=== PATIENT | male | born 1990 | race Hispanic/Latino ===

== ENCOUNTER → 2020-02-24 | Outpatient (CLI) | payer OTHER ==
[2020-02-24 16:46] LABS: APPEARANCE,URINE HAZY (CLEAR); BILIRUBIN,URINE NEGATIVE (NEGATIVE); UA COLOR YELLOW (YELLOW)
[2020-02-24 16:47] LABS: UROBILINOGEN,URINE NEGATIVE (NEGATIVE)
[2020-02-26 07:16] LABS: HEP A AB, IgM Negative (Negative)
== END | disposition home or self-care (01) ==
LOC: LAB 16:18
PROVIDERS: ATTEND Nurse Practitioner Adult Health
DX: R53.83 Other fatigue (principal); R10.9 Unspecified abdominal pain; R19.7 Diarrhea, unspecified; Z20.2 Contact with and (suspected) exposure to infections with a predominantly sexual mode of transmission
CPT/HCPCS: 36415; 80074; 81000; 82272; 84436; 84439; 84443; 86318; 86592; 86695; 86696; 87045; 87086; 87177; 87338

== ENCOUNTER → 2020-03-02 | Outpatient (CLI) | payer OTHER ==
[2020-03-02 10:07] LABS: BASOPHIL # 0.1 10^3/uL (0.0-0.1); EOSINOPHIL # 0.2 10^3/uL (0.0-0.2); EOSINOPHIL % 2.7 % (0.0-5.0); LYMPHOCYTES # 2.09 10^3/uL1 (1.0-4.8); LYMPHOCYTES % 33.6 % (24.0-44.0); MEAN CORP HGB 32.5 pg (26-34); MONOCYTES # 0.6 10^3/uL (0.3-0.8); NEUTROPHIL # 3.3 10^3/uL (1.8-7.7); NEUTROPHILS % 52.4 % (41.0-85.0); PLATELET COUNT 225 10^3/uL (150-400); RED CELL DISTRIBUTION WIDTH 11.9 % (11.5-14.5)
[2020-03-02 10:22] LABS: CALCIUM 8.8 mg/dL (8.4-10.5); CARBON DIOXIDE 28.7 mmol/L (20.0-32)
--- NOTE | 2020-03-02 15:12 | DIREP ---
PROCEDURE:US EXTREMITY UPPER SOFT TISSUE COMPARISON:None. INDICATIONS:R22.9 SWELLING, MASS AND LUMP TECHNIQUE:Sonography of the right axilla was performed using grayscale and color Doppler imaging. FINDINGS: MASSES:None. FLUID COLLECTIONS:None. OTHER:Normal appearing lymph nodes with fatty chrissie are identified in the area of concern. The left axilla was imaged for comparison. No significant abnormalities identified. CONCLUSION:Normal examination. Dictated by: EDILMAA Physician on 03/02/2020 at 02:47 PM ac
--- NOTE | 2020-03-02 17:28 | DIREP ---
PROCEDURE:ABDOMINAL ULTRASOUND COMPARISON:None. INDICATIONS:ABD PAIN, DIARRHEA, FATIGUE TECHNIQUE:High resolution sonographic examination was performed of the abdomen. FINDINGS: PANCREAS:Normal pancreas. LIVER:Normal hepatic parenchymal architecture. No focal hepatic lesion is identified. Hepatopetal flow in the portal vein. GALLBLADDER:There is minimal sludge present in the dependent portion of the gallbladder. No shadowing gallstones are demonstrated. No evidence for gallbladder wall thickening or pericholecystic fluid. BILIARY:There is no biliary ductal dilatation. RIGHT KIDNEY:Normal. No hydronephrosis. LEFT KIDNEY:Normal. No hydronephrosis. SPLEEN:Normal. AORTA:The visualized portions appear unremarkable. IVC:Intrahepatic portions unremarkable. OTHER:Negative. No ascites is identified. AORTA (prox):2.3 x 2.0 cm AORTA (mid):1.3 x 1.6 cm AORTA (dist):1.4 x 1.3 cm CBD:0.1 cm GALLBLADDER WALL:0.2 cm RIGHT KIDNEY:10.5 x 7.0 x 6.6 cm LEFT KIDNEY:11.1 x 5.4 x 5.6 cm SPLEEN:9.7 x 9.4 x 3.7 cm CONCLUSION:No gallstones. Minimal sludge in the gallbladder. No other significant findings. Dictated by: BRETT Physician on 03/02/2020 at 04:39 PM
== END | disposition home or self-care (01) ==
LOC: RAD 09:00
PROVIDERS: ATTEND Nurse Practitioner Adult Health
DX: R10.9 Unspecified abdominal pain (principal); R22.9 Localized swelling, mass and lump, unspecified; R19.7 Diarrhea, unspecified; R53.83 Other fatigue
CPT/HCPCS: 36415; 76700; 76882; 80053; 85025